=== PATIENT | male | born 1975 | race Asian ===

== ENCOUNTER 2016-09-15 11:02 | Day surgery (SDC) | payer OTHER ==
[2016-09-15] MEDS ORDERED: LIDOCAINE 1% 5 ML SDV ONE ×2 (11:20→11:46)
[2016-09-15] MEDS ORDERED: cefOXitin SODIUM 1 GM in D5W 50 ML IV ONE (12:30)
[2016-09-15] MEDS ORDERED: BUPIVACAINE/EPI 0.5% 30 ML SDV ONE (12:59)
[2016-09-15] MEDS ORDERED: METHYLENE BLUE 1% 100 MG/10 ML VIAL ONE (13:00)
[2016-09-15] MEDS ORDERED: LIDOCAINE 2% 100 MG/5 ML SYR IVP ONE (13:14)
[2016-09-15] MEDS ORDERED: fentaNYL 100 MCG/2 ML INJ ONE (13:14)
[2016-09-15] MEDS ORDERED: PROPOFOL 200 MG/20 ML VIAL ONE (13:14)
[2016-09-15] MEDS ORDERED: ONDANSETRON 4 MG/2 ML VIAL ONE (13:14)
[2016-09-15] MEDS ORDERED: DEXAMETHASONE 4 MG/ML VIAL ONE (13:14)
[2016-09-15] MEDS ORDERED: MIDAZOLAM 2 MG/2 ML VIAL ONE (13:44)
[2016-09-15] MEDS ORDERED: KETOROLAC 30 MG/1 ML SDV ONE (14:39)
--- NOTE | 2016-09-16 10:10 | GOP ---
DATE OF OPERATION: 09/15/2016 SURGEON: Faraz Doty MD ARCHITECTURE CONSULTANT: DANIEL Lyman ANESTHESIOLOGIST: Dr. Majano. PREOPERATIVE DIAGNOSIS: Recurrent perirectal abscesses and anal fistula. POSTOPERATIVE DIAGNOSIS: Recurrent perirectal abscesses and anal fistula. PROCEDURE PERFORMED: Examination under anesthesia with anal fistulectomy and drainage of perirectal abscess. FINDINGS: Patient was found to have a small 1.5 cm perirectal abscess cavity and a direct fistula i nvolving only the superficial sphincter muscle. DESCRIPTION OF PROCEDURE: Patient taken to the operating room where he received satisfactory genera l endotracheal anesthesia by Dr. Majano, placed in lithotomy position, prepped and draped in usual sterile fashion. Anus was infiltrated with 0.5% Marcaine and dilated. Methylene blue with peroxid e was injected in the external fistula opening and an internal direct fistula opening was identified directly radial from the external opening at the 6 o'clock position. A probe was passed through th is fistula track, which was then excised with electrocautery, unroofing perirectal abscess as well. This was curetted until clean. Hemostasis was obtained with electrocautery. The wound was packed with some Xeroform gauze, further infiltrated with 0.5% Marcaine. He tolerated procedure well, was taken to recovery room in good condition. There were no complications. /[id number]/MODL
== END 2016-09-15 16:30 | disposition home health service (06) ==
LOC: FSGY 11:02 → EEVIPCON 12:45 → FSGY 16:30
PROVIDERS: ATTEND Surgery
PROC: 0D9P8ZZ Drainage of Rectum, Via Natural or Artificial Opening Endoscopic (ICD-10-PCS; principal; 2016-09-15 12:45)
PROC: 0DQP8ZZ Repair Rectum, Via Natural or Artificial Opening Endoscopic (ICD-10-PCS; principal; 2016-09-15 12:45)
DX: K61.1 Rectal abscess (principal)
CPT/HCPCS: J0697; J1100; J1885; J2001; J2250; J2405; J2704; J3010; Q9968